=== PATIENT | female | born 1995 | race African-American/Black ===

== ENCOUNTER 2021-08-02 17:24 | Emergency (ER) | payer OTHER, SELFPAY ==
[2021-08-02 18:25] LABS: Bilirubin Negative (Negative); Blood, Urine Negative (Negative); Clarity Clear (Clear); Glucose, Urine (Dipstick) Normal (Negative); Ketone, Urine Negative (Negative); Leukocyte Negative Leu/uL (Negative); Nitrite Negative (Negative); Protein, Urine (Dipstick) Negative (Neg-Trace); Specific Gravity, Urine 1.012 (1.002-1.036); Urobilinogen Normal mg/dL (Less than 2); pH, Urine 6.5 (5.0-9.0)
== END 2021-08-02 20:20 | disposition short-term general hospital (02) ==
LOC: ERS 17:24
DX: O23.592 Infection of other part of genital tract in pregnancy, second trimester (principal); N89.8 Other specified noninflammatory disorders of vagina; Z3A.26 26 weeks gestation of pregnancy
CPT/HCPCS: 76815; 81003; 87086